=== PATIENT | female | born 1960 | race Hispanic/Latino ===

== ENCOUNTER 2019-05-28 18:36 | Emergency (ER) | payer MEDICARE, OTHER ==
[~2019-05-28] VITALS: Ht 162.6 cm; Wt 99.8 kg
--- OUTSIDE RECORDS SUMMARY | 2019-05-28 18:39 | XMS REPORT ---
[facility] Address Unknown Phone Unavailable Care Team Providers Care [employer] Name Role Phone Unavailable Unavailable Problems This patient has no known problems. Allergies, Adverse Reactions, Alerts This patient has no known allergies or adverse reactions. Medications This patient has no known medications. Results Test Description Test Time Test Comments Text Results Atomic Results Result Comments BREAST ULTRASOUND BILATERAL 2018-11-09 17:20:23 - DIAG MAMM BILATERAL HERNAN CAD DIGITALBILATERAL DIGITAL DIAGNOSTIC MAMMOGRAM 3D/2D WITH CAD: 11/09/2018CLINICAL: Abnormal Mammogram. Digital breast tomosynthesis was performed in addition to routine CC and MLO views. Current mammographic images were evaluated by either a De Correspondent M-Vu or a TM3 Software ImageChecker CAD (computer aided detection system). Comparison is made to exam dated 10/09/2018 mammogram - [facility]. There are scattered fibroglandular tissues in both breasts. The previously described asymmetries on the outside screening examination persist with additional imaging as follows: -There is a 7 mm asymmetry, in the inferior right breast, approximately 9 cm from the nipple on the MLO view. There is a 9 mm asymmetry, in the inferior left breast, approximately 7 cm from the nipple.No other significant findings. No architectural distortion or lymph node abnormality is identified.INCOMPLETE ASSESSMENT: ADDITIONAL IMAGING EVALUATION RECOMMENDEDUltrasound was performed for further evaluation.- BREAST ULTRASOUND BILATERALULTRASOUND OF BOTH BREASTS AND BOTH AXILLA: 11/09/2018Comparison is made to exam dated 10/09/2018 mammogram - [facility]. Real-time ultrasound of both breasts and both axilla was performed. There is sonographically normal-appearing tissue. No suspicious masses or areas of abnormal shadowing are identified.Morphologically normal- appearing lymph nodes are seen in the axilla.No sonographic correlate is seen for the asymmetries seen on mammography.IMPRESSION: PROBABLY BENIGN - FOLLOW-UP RECOMMENDED1. Probably benign 7 mm asymmetry, in the inferior right breast, approximately 9 cm from the nipple, on the right MLO view. 2. Probably benign 9 mm asymmetry, in the inferior left breast, approximately 7 cm from the nipple.3. A bilateral follow-up mammogram in 6 months is recommended to demonstrate stability. Findings and recommendations were discussed with the patient at the conclusion of the examination today.Mary Jane Abernathy D.O. al/:11/09/2018 17:20:23 Transmission Maintenance Supervisor: Vidya Rubi FW, [facility]-FWletter sent: Short Term Follow Up Mammogram BI-RADS: 0 Indeterminate Ultrasound BI-RADS: 3 Probably benign DIAG MAMM BILATERAL HERNAN CAD DIGITAL 2018-11-09 17:20:23 - DIAG MAMM BILATERAL HERNAN CAD DIGITALBILATERAL DIGITAL DIAGNOSTIC MAMMOGRAM 3D/2D WITH CAD: 11/09/2018CLINICAL: Abnormal Mammogram. Digital breast tomosynthesis was performed in addition to routine CC and MLO views. Current mammographic images were evaluated by either a De Correspondent M-Vu or a FotoSwipeer CAD (computer aided detection system). Comparison is made to exam dated 10/09/2018 mammogram - [facility]. There are scattered fibroglandular tissues in both breasts. The previously described asymmetries on the outside screening examination persist with additional imaging as follows: -There is a 7 mm asymmetry, in the inferior right breast, approximately 9 cm from the nipple on the MLO view. There is a 9 mm asymmetry, in the inferior left breast, approximately 7 cm from the nipple.No other significant findings. No architectural distortion or lymph node abnormality is identified.INCOMPLETE ASSESSMENT: ADDITIONAL IMAGING EVALUATION RECOMMENDEDUltrasound was performed for further evaluation.- BREAST ULTRASOUND BILATERALULTRASOUND OF BOTH BREASTS AND BOTH AXILLA: 11/09/2018Comparison is made to exam dated 10/09/2018 mammogram - [facility]. Real-time ultrasound of both breasts and both axilla was performed. There is sonographically normal-appearing tissue. No suspicious masses or areas of abnormal shadowing are identified.Morphologically normal- appearing lymph nodes are seen in the axilla.No sonographic correlate is seen for the asymmetries seen on mammography.IMPRESSION: PROBABLY BENIGN - FOLLOW-UP RECOMMENDED1. Probably benign 7 mm asymmetry, in the inferior right breast, approximately 9 cm from the nipple, on the right MLO view. 2. Probably benign 9 mm asymmetry, in the inferior left breast, approximately 7 cm from the nipple.3. A bilateral follow-up mammogram in 6 months is recommended to demonstrate stability. Findings and recommendations were discussed with the patient at the conclusion of the examination today.Mary Jane Abernathy D.O. al/:11/09/2018 17:20:23 Transmission Maintenance Supervisor: Vidya SILVESTRE, [facility]-FWletter sent: Short Term Follow Up Mammogram BI-RADS: 0 Indeterminate Ultrasound BI-RADS: 3 Probably benign
--- OUTSIDE RECORDS SUMMARY | 2019-05-28 18:39 | XMS REPORT | Summary of Care ---
Author Author [facility] Address [address] [place] [address] Phone Unavailable Care Team Providers Care Weigh And Charge Worker Name Role Phone MAKENZIE Celeste, PHILL Unavailable Unavailable MAKENZIE HELTON, PHILL Unavailable Unavailable Kori Fonseca MD Unavailable Unavailable Unavailable Unavailable Functional Status Name Dates Details Functional status health issues are not documented Status: Name Dates Details Cognitive status health issues are not documented Status: Problems Name Dates Details BMI 32.0-32.9,adult (V85.32, Z68.32) Status: Active Retinal disease (362.9, H35.9) Status: Active Floaters, left (379.24, H43.392) Status: Active Influenza vaccination declined (V64.06, Z28.21) Status: Active Anemia, unspecified type (285.9, D64.9) Status: Active Screen for colon cancer (V76.51, Z12.11) Status: Active Back pain, lumbosacral (724.2, M54.5) Status: Active Chronic depression (311, F32.9) Status: Active Obesity (BMI 30-39.9) (278.00, E66.9) Status: Active Dyslipidemia (272.4, E78.5) Status: Active Hook 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, 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: Active CKD (chronic kidney disease), stage III (585.3, N18.3) Status: Active Need for influenza vaccination (V04.81, Z23) Status: Active Sleep disturbance (780.50, G47.9) Status: Active Snoring (786.09, R06.83) Status: Active 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, 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 Acute URI (465.9, J06.9) Status: Active Benign essential hypertension (401.1, I10) Status: Active CKD (chronic kidney disease), stage IV (585.4, N18.4) Status: Active Proteinuria (791.0, R80.9) Status: Active Medications Name Dates Details GlipiZIDE 10 MG Oral Tablet TAKE ONE TABLET BY MOUTH ONCE DAILY IN THE MORNING BEFORE LUNCH Quantity: 90 SATTAR M.D., PHILL * Start : 04-Nov-2016 Active Jann Aspirin TABS * Refills: 0 Active Carvedilol 25 MG Oral Tablet TAKE ONE TABLET BY MOUTH TWICE DAILY WITH MEALS * Quantity: 180 Refills: 0 SATTAR M.D., PHILL * Start : 24-Jun-2016 Active Folic Acid 400 MCG Oral Tablet * Refills: 0 Active Venlafaxine HCl - 75 MG Oral Tablet TAKE ONE TABLET BY MOUTH TWICE DAILY * Quantity: 90 Refills: 0 SATTAR M.D., PHILL * Start : 22-Jul-2016 Active Lantus SoloStar 100 UNIT/ML Subcutaneous Solution Pen-injector INJECT SUBCUTANEOUSLY DIRECTED, 22 UNITS DAILY. (max 50 units) * Quantity: 5 Refills: 0 SATTAR M.D., PHILL * Start : 01-Oct-2016 Active 3 ML Pen BD Insulin Syringe Ultrafine 31G X 15/64" 1 ML For Lantus solution once every night. and humalog tid as needed * Quantity: 1 Refills: 0 SATTAR M.D., PHILL * Start : 01-Oct-2016 Active 100 Unit Box Losartan Potassium 25 MG Oral Tablet TAKE 1 TABLET BY MOUTH EVERY DAY * Quantity: 90 Refills: 0 SATTAR M.D., PHILL * Start : 27-Nov-2016 Active Atorvastatin Calcium 80 MG Oral Tablet TAKE 1 TABLET AT BEDTIME. * Quantity: 30 Refills: 3 SATTAR M.D., PHILL * Start : 19-Dec-2016 Active HumaLOG KwikPen 100 UNIT/ML Subcutaneous Solution Pen-injector Inject SC: if blood sugars 150-199:2units (U), 200-249:4U, 250-299:6U, 300-349:8 U, 350-399:10U, 400 plus, call office * Quantity: 1 Refills: 0 SATTAR M.D., PHILL * Start : 01-Jan-2017 Active 5 x 3 ML Pen Allergies and Adverse Reactions Name Dates Details Duricef (Allergy) Status: Active Past Medical History Name Dates Details History of diabetes mellitus (V12.29, Z86.39) Status: Resolved History of hypertension (V12.59, Z86.79) Status: Resolved Procedures Procedure Dates Details [Q] LIPID PANEL WITH REFLEX TO DIRECT LDL Date: 05-Jan-2017 [[facility]] VITAMIN D, 25-HYDROXY, LC/MS/MS Date: 04-Mar-2017 History of Hysterectomy Completed History of Hysterectomy Total, With Removal Of Both Tubes And Both Ovaries Completed Immunization Name Dates Details Pneumovax 23 25 MCG/0.5ML Injection Injectable on: 03-Mar-2014 Fluzone Quadrivalent 0.5 ML Intramuscular Suspension Lot #: [id number] on: 01-Jan-2017 Family History Name Dates Details Family history of hypertension (V17.49, Z82.49) Status: Active Family history of diabetes mellitus (V18.0, Z83.3) Status: Active Name Dates Details Family history of diabetes mellitus (V18.0, Z83.3) Status: Active Name Dates Details Family history of diabetes mellitus (V18.0, Z83.3) Status: Active Name Dates Details Family history of hypertension (V17.49, Z82.49) Status: Active Social History Name Dates Details - Status: Name Dates Details Former smoker Vital Signs Date Test Result Details 04-Mar-20179:36 BP Systolic 160 mm[Hg] Status: BP Diastolic 75 mm[Hg] Status: Height 64 in Status: Weight 218 lb Status: Body Mass Index Calculated 37.42 kg/m2 Status: Body Surface Area Calculated 2.03 m2 Status: Heart Rate 69 /min Status: [id number] BP Systolic 144 mm[Hg] Status: BP Diastolic 76 mm[Hg] Status: Height 64 in Status: Weight 214 lb Status: Body Mass Index Calculated 36.73 kg/m2 Status: Body Surface Area Calculated 2.01 m2 Status: Heart Rate 73 /min Status: Temperature 98 f Status: Comments: Method: Temporal Respiration Rate 16 /min Status: Results Date Description Value Details [id number] Tobacco Use Screening Completed DONE Plan of Care Name Dates Details Planned Observations Planned Goals not documented Planned Encounters Appointment; PHILL BANEGAS M.D. On: 01-Apr-2017 10:30 Appointment; KORI FONSECA M.D. On: 29-Apr-2017 11:00 Instructions Name Dates Details Instructions not documented Encounters Appointment; PHILL BANEGAS M.D. Encounter Diagnosis: Problem not documented On: 20-May-2016 13:30 Appointment; PHILL BANEGAS M.D. Encounter Diagnosis: Problem not documented On: 29-May-2016 11:30 Appointment; MANGO QUINTERO M.D. Encounter Diagnosis: Problem not documented On: 02-Jun-2016 15:00 Appointment; PHILL BANEGAS M.D. Encounter Diagnosis: Problem not documented On: 06-Jun-2016 14:30 Appointment; PHILL BANEGAS M.D. Encounter Diagnosis: Problem not documented On: 24-Jun-2016 14:00 Appointment; KORI FONSECA M.D. Encounter Diagnosis: Problem not documented On: 09-Jul-2016 8:30 Appointment; PHILL BANEGAS M.D. Encounter Diagnosis: Problem not documented On: 22-Jul-2016 14:30 Appointment; JAYNE RASCON [address] Encounter Diagnosis: Problem not documented On: 12-Aug-2016 13:00 Appointment; PHILL BANEGAS M.D. Encounter Diagnosis: Problem not documented On: 20-Aug-2016 14:30 Appointment; KORI FONSECA M.D. Encounter Diagnosis: Problem not documented On: 10-Sep-2016 11:00 Appointment; PHILL BANEGAS M.D. Encounter Diagnosis: Problem not documented On: 01-Oct-2016 13:00 Appointment; KORI FONSECA M.D. Encounter Diagnosis: Problem not documented On: 26-Nov-2016 9:00 Appointment; PHILL BANEGAS M.D. Encounter Diagnosis: Problem not documented On: 01-Jan-2017 13:00 Appointment; PHILL BANEGAS M.D. Encounter Diagnosis: Problem not documented On: 18-Feb-2017 10:30 Appointment; KORI FONSECA M.D. Encounter Diagnosis: Problem not documented On: 04-Mar-2017 10:00
[2019-05-28 19:27] LABS: BASOPHILS # (AUTO) 0.1 (0.0-0.1); BASOPHILS % 0.8 % (0.0-1.0); EOSINOPHILS # (AUTO) 0.4 (0.0-0.4); HEMATOCRIT 36.4 % (34.2-44.1); HEMOGLOBIN 12.5 g/dL (12.0-16.0); LYMPHOCYTES # (AUTO) 2.6 (1.0-3.2); LYMPHOCYTES % 30.2 % (18.0-39.1); MEAN CORPUSCULAR HEMOGLOBIN 31.2 pg (28-32); MEAN CORPUSCULAR HGB CONC 34.3 g/dL (31-35); MEAN CORPUSCULAR VOLUME 90.8 fL (81-99); MONOCYTES # (AUTO) 0.4 (0.2-0.8); MONOCYTES % 4.6 % (4.4-11.3); PLATELET COUNT 170 x10e3/uL (140-360); RED BLOOD COUNT 4.01 x10e6/uL (3.6-5.1); RED CELL DISTRIBUTION WIDTH 12.7 % (11.7-14.4)
[2019-05-28 19:31] LABS: INR 0.88; PROTHROMBIN TIME 12.4 seconds (11.9-14.5)
[2019-05-28 19:32] LABS: PARTIAL THROMBOPLASTIN TIME 20.3 seconds (23.8-35.5)
[2019-05-28 19:42] LABS: ALANINE AMINOTRANSFERASE 34 IU/L (0-55); ALBUMIN 3.9 g/dL (3.5-5.0); ALBUMIN/GLOBULIN RATIO 1.1 (0.8-2.0); ALKALINE PHOSPHATASE 125 IU/L (40-150); AMYLASE 111 U/L (25-125); BLOOD UREA NITROGEN 33 mg/dL (7-26); BUN/CREATININE RATIO 9 (6-25); CALCIUM 9.5 mg/dL (8.4-10.2); CARBON DIOXIDE 28 mmol/L (22-29); CHLORIDE 102 mmol/L (98-107); CREATINE KINASE 74 IU/L (29-168); CREATININE, SERUM 3.59 mg/dL (0.57-1.11); EST GLOMERULAR FILTRATION RATE 13 ML/MIN (60-); GLUCOSE 114 mg/dL (74-118); LIPASE 48 U/L (8-78); SODIUM 139 mmol/L (136-145)
[2019-05-28 19:56] LABS: BILIRUBIN,URINE NEGATIVE (NEGATIVE); CLARITY,URINE HAZY (CLEAR); COLOR,URINE YELLOW (YELLOW); KETONES,URINE NEGATIVE (NEGATIVE); LEUKOCYTE ESTERASE ,URINE TRACE (NEGATIVE); NITRITE,URINE NEGATIVE (NEGATIVE); PROTEIN,URINE DIPSTICK >=300 (NEGATIVE); URINE UROBILINOGEN 0.2 mg/dL (0.2 - 1)
[2019-05-28 19:59] LABS: BACTERIA,URINE MODERATE /HPF; EPITHELIAL CELLS,URINE MODERATE /LPF; RBC,URINE 0-5 /HPF (0-5)
[2019-05-28 20:00] LABS: AMORPHOUS SEDIMENT,URINE FEW (FEW)
--- NOTE | 2019-05-28 20:49 | Diagnostic Imaging Report ---
EXAM: Abdomen Radiograph 2 View INDICATION: Abdominal pain COMPARISON: None FINDINGS: No abnormalities in the lower chest. No lines or tubes. Moderate colonic stool burden. No dilated loops of small bowel. No abnormal abdominal calcifications.. No abnormal soft tissue masses. No pneumoperitoneum. No acute osseous abnormality. Mild degenerative changes in the lumbar spine, hips, and pelvis. Cholecystectomy clips in the right upper quadrant. IMPRESSION: Moderate pancolonic stool burden, correlate for constipation. Signed by: Aleksandar Garrett DO on 05/28/2019 8:46 PM
[2019-05-28 20:58] VITALS: BP 137/79
== END 2019-05-28 21:02 | disposition home or self-care (01) ==
LOC: ER 18:36
DX: N30.01 Acute cystitis with hematuria (principal); K59.00 Constipation, unspecified; I10 Essential (primary) hypertension; E11.9 Type 2 diabetes mellitus without complications; Z83.3 Family history of diabetes mellitus; Z82.49 Family history of ischemic heart disease and other diseases of the circulatory system
CPT/HCPCS: 36415; 74019; 80053; 81001; 82150; 82550; 82553; 83690; 84484; 85025; 85610; 85730; 93005; 99284

== ENCOUNTER 2020-05-07 10:41 | Emergency (ER) | payer MEDICARE, OTHER ==
[~2020-05-07] VITALS: Ht 162.6 cm; Wt 99.8 kg
[2020-05-07 11:21] LABS: BASOPHILS # (AUTO) 0.1 (0.0-0.1); BASOPHILS % 0.6 % (0.0-1.0); EOSINOPHILS # (AUTO) 0.2 (0.0-0.4); EOSINOPHILS % 2.8 % (0.0-6.0); HEMOGLOBIN 10.7 g/dL (12.0-16.0); LYMPHOCYTES # (AUTO) 2.1 (1.0-3.2); LYMPHOCYTES % 25.1 % (18.0-39.1); MEAN CORPUSCULAR HEMOGLOBIN 31.5 pg (28-32); MEAN CORPUSCULAR HGB CONC 34.5 g/dL (31-35); MEAN CORPUSCULAR VOLUME 91.2 fL (81-99); MONOCYTES # (AUTO) 0.4 (0.2-0.8); MONOCYTES % 4.5 % (4.4-11.3); NEUTROPHILS # (AUTO) 5.5 (2.1-6.9); NEUTROPHILS % 66.4 % (38.7-80.0); PLATELET COUNT 236 x10e3/uL (140-360); RED CELL DISTRIBUTION WIDTH 12.9 % (11.7-14.4)
[2020-05-07 11:44] LABS: ALBUMIN 4.1 g/dL (3.5-5.0); ANION GAP 16.4 mmol/L (8-16); CALCIUM 9.3 mg/dL (8.4-10.2); CREATININE, SERUM 1.67 mg/dL (0.57-1.11); POTASSIUM 3.4 mmol/L (3.5-5.1)
[2020-05-07 11:50] LABS: CREATINE KINASE MB 1.1 ng/mL (0-5.0)
[2020-05-07] MEDS ORDERED: METOCLOPRAMIDE HCL 10 MG/2ML VIAL IV ONE (12:00)
[2020-05-07] MEDS ORDERED: DIPHENHYDRAMINE HCL INJ 50 MG/ML VIAL IV ONE (12:00)
[2020-05-07] MEDS ORDERED: ACETAMIN/BUTALBITAL/CAFFEINE TAB PO ONE (12:00)
== END 2020-05-07 13:38 | disposition home or self-care (01) ==
LOC: ER 11:24
DX: R07.89 Other chest pain (principal); R51.9 Headache, unspecified; R06.02 Shortness of breath; I12.0 Hypertensive chronic kidney disease with stage 5 chronic kidney disease or end stage renal disease; E11.22 Type 2 diabetes mellitus with diabetic chronic kidney disease; N18.6 End stage renal disease; Z99.2 Dependence on renal dialysis; Z20.822 Contact with and (suspected) exposure to COVID-19; R94.31 Abnormal electrocardiogram [ECG] [EKG]
CPT/HCPCS: 36415; 71045; 80053; 82550; 82553; 83880; 84484; 85025; 93005; 99284; J1200; J2765; U0002

== ENCOUNTER 2024-04-03 11:37 | Emergency (ER) | payer MEDICARE ==
[~2024-04-03] VITALS: Ht 162.6 cm; Wt 93.0 kg
[~2024-04-03 11:37] MED LIST: ASPIRIN81 MG PO; ATORVASTATIN CA20 MG PO; CARVEDILOL12.5 MG PO; FUROSEMIDE40 MG PO; HUMALOG MI100 UNIT/2 SQ; LANTUS 3ML100 UNITS/; LOSARTAN POTAS100 MG PO; NIFEDIPINE10 MG PO
[2024-04-03 11:43] VITALS: TEMP 98.2
[2024-04-03 12:27] LABS: BASOPHILS # (AUTO) 0.1 (0.0-0.1); BASOPHILS % 0.9 % (0.0-1.0); EOSINOPHILS # (AUTO) 0.2 (0.0-0.4); EOSINOPHILS % 3.2 % (0.0-6.0); HEMATOCRIT 32.7 % (34.2-44.1); HEMOGLOBIN 11.3 g/dL (12.0-16.0); LYMPHOCYTES # (AUTO) 2.4 (1.0-3.2); LYMPHOCYTES % 35.7 % (18.0-39.1); MEAN CORPUSCULAR HEMOGLOBIN 32.5 pg (28-32); MEAN CORPUSCULAR HGB CONC 34.6 g/dL (31-35); MONOCYTES # (AUTO) 0.4 (0.2-0.8); MONOCYTES % 5.4 % (4.4-11.3); NEUTROPHILS # (AUTO) 3.7 (2.1-6.9); NEUTROPHILS % 54.4 % (38.7-80.0); PLATELET COUNT 179 x10e3/uL (140-360); RED BLOOD COUNT 3.48 x10e6/uL (3.6-5.1); RED CELL DISTRIBUTION WIDTH 12.1 % (11.7-14.4)
[2024-04-03] MEDS: MECLIZINE HCL 12.5 MG TAB PO ONE (12:37)
[2024-04-03 12:46] LABS: ALBUMIN 3.7 g/dL (3.5-5.0); ALBUMIN/GLOBULIN RATIO 1.2 (0.8-2.0); ANION GAP 16.2 mmol/L (8-16); BILIRUBIN,TOTAL 0.8 mg/dL (0.2-1.2); CALCIUM 9.7 mg/dL (8.4-10.2); CREATININE, SERUM 6.24 mg/dL (0.57-1.11); TOTAL PROTEIN 6.8 g/dL (6.5-8.1)
[2024-04-03 13:03] LABS: POTASSIUM 3.2 mmol/L (3.5-5.1)
[2024-04-03] MEDS ORDERED: MECLIZINE HCL12.5 MG PO (14:02)
[2024-04-03 14:10] VITALS: PULSE 64; RESP 16; O2SAT 98
== END 2024-04-03 14:10 | disposition home or self-care (01) ==
LOC: ER 12:23
DX: R42 Dizziness and giddiness (principal); I12.0 Hypertensive chronic kidney disease with stage 5 chronic kidney disease or end stage renal disease; E11.22 Type 2 diabetes mellitus with diabetic chronic kidney disease; E11.65 Type 2 diabetes mellitus with hyperglycemia; N18.6 End stage renal disease; Z99.2 Dependence on renal dialysis; E78.5 Hyperlipidemia, unspecified; R94.31 Abnormal electrocardiogram [ECG] [EKG]
CPT/HCPCS: 36415; 70450; 80053; 84484; 85025; 93005; 99284; J8597